=== PATIENT | male | born 1955 | race Caucasian/White ===

== ENCOUNTER 2020-03-02 10:16 | Observation (INO) ==
--- NOTE | 2020-01-09 14:25 | PAT Medication Instructions ---
Medication Instructions Date of Service January 09, 2020 Home Medications acetaminophen [Tylenol Arthritis Pain] 1,300 mg PO Q12H PRN diclofenac sodium [Voltaren] 2 g TOPICAL HS PRN multivitamin 1 tab PO QAM STOP taking 24 hours before surgery diclofenac sodium [Voltaren] 2 g TOPICAL HS PRN DO NOT take the morning of surgery multivitamin 1 tab PO QAM Take morning of surgery With a small sip of water, OTHERWISE NOTHING TO EAT OR DRINK AFTER MIDNIGHT: acetaminophen [Tylenol Arthritis Pain] 1,300 mg PO Q12H PRN (okay to take up to 4 hours prior to surgery if needed) Take evening before surgery acetaminophen [Tylenol Arthritis Pain] 1,300 mg PO Q12H PRN (if needed) Other Notes If you have any questions please call us at [phone] or [phone] or [phone] or [phone]
--- NOTE | 2020-01-12 11:59 | Anesthesiology Consultation ---
Date of Service January 12, 2020 Assessment & Plan (1) Encounter for pre-operative examination: - Inferior infarct on preop EKG: No comparison EKG's available in our system. Awaiting response from PCP regarding abnormal preop EKG (Dr. Adkins). Per PAT assessment on 01/11: Travel screen- Lives in [facility]. No known COVID-19 positive contacts (spouse had preop testing which was negative). Surgeon arranging preop COVID testing. Awaiting results. Chart Review Chart Review: Patient seen in Pre Admission Testing Teaching & Discussion Pre-Anesthesia Teaching/Discussion Notes: Instructed NPO after midnight before surgery,except medications with 15 cc of water. Medication instructions provided according to the PAT guidelines. History Surgery Operation Date: 03/02/20 10:55 Proposed Procedures p Left Total Knee Arthroplasty - Erick Abbott MD Surgery side changed to Right TKA (new booking sheet received)* Height/Weight Height: 5 ft 9 in Weight: 128.4 kg Allergies Allergy/AdvReac Type Severity Reaction Status Date / Time No Known Allergies Allergy Verified 01/08/20 13:53 Medications Home Medications Medication Instructions Recorded Confirmed Last Taken acetaminophen [Tylenol Arthritis 1,300 mg PO Q12H PRN 01/08/20 01/08/20 Unknown Pain] diclofenac sodium [Voltaren] 2 g TOPICAL HS PRN 01/08/20 01/08/20 Unknown multivitamin 1 tab PO QAM 01/08/20 01/08/20 Unknown Past Medical History Medical History Morbid obesity Osteoarthritis Exercise / Class Metabolic Activity II 4-5 Yardwork/Stairs/Walk up hill Past Surgical History Surgical History History of colonoscopy History of total shoulder replacement R/L x1, + right revision Past Anesthesia History No Hx of Anesthesia Complications and No Family Hx of Anesthesia Complications History of PONV No Hx of PONV and No Hx of Motion Sickness Social History Smoking Status: Never smoker Do You Dip or Chew Tobacco: No (QUIT MANY YRS) Hx Alcohol Use: No Hx Substance Use: No Review of Systems Patient denies chest pain, shortness of breath, dyspnea on exertion, fever, chills, cough, wheezing, palpitations. Physical Exam Vital Signs VITALS BP 155/77 P 80 TEMP 98.0 SP02 97%RA RESP 18 PHYSICAL Full neck and c-spine range of motion. Full TMJ range of motion. TMD 3.5 finger breaths Mallampati Score 2 Dentition: intact, several caps/implants including front teeth Lungs: clear throughout to auscultation Cardiac: regular rate and rhythm, no murmurs noted Spine: normal Carotid arteries: negative bruit Extremities: no edema + trimmed cristina + thick neck Testing Laboratory Results 01/12/20 12:50 01/12/20 12:50 PT 10.8 Seconds (9.0-12.0) 01/12/20 12:50 INR 1.0 (0.9-1.1) 01/12/20 12:50 APTT 26.7 Seconds (21.0-31.0) 01/12/20 12:50 Blood Type A Positive 01/12/20 12:50 Antibody Screen NEGATIVE 01/12/20 12:50 Electrocardiogram Date: 01/12/20 NSR at 63bpm. Inferior infarct, age undetermined. Chest X-Ray Date: 01/12/20 FINDINGS: The cardiac and mediastinal contours are normal. There is no evidence of focal pulmonary consolidation. There is no evidence of failure. No pleural effusions are visualized. There are bilateral total shoulder arthroplasties. IMPRESSION: No active disease in the chest.
[2020-01-12 13:30] LABS: Basophils # (auto) 0.03 K/uL (0-0.2); Basophils % (auto) 0.5 %; Eosinophils # (auto) 0.16 K/uL (0-0.5); Eosinophils % (auto) 2.6 %; Hematocrit (blood only) 47.4 % (42-52); Hemoglobin 15.6 g/dL (14.0-18.0); Immature Granulocytes # (auto) 0.04 K/uL (0.00-0.02); Immature Granulocytes % (auto) 0.7 %; Lymphocytes # (auto) 1.49 K/uL (1.2-3.4); Lymphocytes % (auto) 24.4 %; Mean Corpuscular Hemoglobin 29.3 pg (25-34); Mean Corpuscular Hgb Conc 32.9 g/dL (32-36); Mean Corpuscular Volume 89.1 fL (80-100); Mean Platelet Volume 9.3 fL (7.4-10.4); Monocytes # (auto) 0.49 K/uL (0.11-0.59); Neutrophils # (auto) 3.89 K/uL (1.4-6.5); Neutrophils % (auto) 63.8 %; Platelet Count 265 K/uL (130-400); RDW Standard Deviation 45.5 fL (36.4-46.3); Red Blood Count 5.32 M/uL (4.7-6.1)
--- NOTE | 2020-01-12 13:30 | XRay Report ---
XR chest Pre-admission PA/Lat CLINICAL HISTORY: Preoperative chest COMPARISON STUDY: No previous studies for comparison. FINDINGS: The cardiac and mediastinal contours are normal. There is no evidence of focal pulmonary co nsolidation. There is no evidence of failure. No pleural effusions are visualized.[There are bilatera l total shoulder arthroplasties. IMPRESSION: No active disease in the chest. ACT 112: Negative or not required by law. Electronically signed by: Junior Tierney M.D. 01/12/2020 1:29 PM
[2020-01-12 13:45] LABS: Partial Thromboplastin Time 26.7 Seconds (21.0-31.0); Prothrombin Time 10.8 Seconds (9.0-12.0)
[2020-01-12 13:52] LABS: BUN Creatinine Ratio 13.5 (10-20); Blood Urea Nitrogen 14 mg/dl (7-18); C Reactive Protein < 0.29 mg/dl (0-0.29); Calcium 9.3 mg/dl (8.5-10.1); Carbon Dioxide 29 mmol/L (21-32); Chloride 106 mmol/L (98-107); Creatinine Clr Calc Pharmacy 94.8 ml/min; Est GFR (African American) 87.9; Est GFR (Non-African American) 75.9; Glucose 99 mg/dl (70-99); Potassium 4.6 mmol/L (3.5-5.1); Sodium 140 mmol/L (136-145)
--- NOTE | 2020-01-12 17:56 | Electrocardiogram Report ---
Test Reason : Blood Pressure : / mmHG Vent. Rate : 063 BPM Atrial Rate : 063 BPM P-R Int : 166 ms QRS Dur : 094 ms QT Int : 404 ms P-R-T Axes : 031 -14 -08 degrees QTc Int : 413 ms Normal sinus rhythm Inferior infarct , age undetermined Abnormal ECG No previous ECGs available Confirmed by Ziyad Cameron ([id number]) on 01/12/2020 5:55:59 PM Referred By: Erick Abbott Confirmed By:William Cameron
--- NOTE | 2020-02-24 22:47 | History and Physical Report ---
DATE OF ADMISSION: 03/02/2020 CHIEF COMPLAINT: Bilateral knee pain and discomfort, right side greater than left. HISTORY OF PRESENT ILLNESS: The patient is a 64-year-old active gentleman who presents for surgical treatment of his knees. His has been a patient of mine. He has a 7-year history of bilateral pain and discomfort in his knee that has gradually gotten worse. It kind of vacillates back and forth which one bothers him more. Currently the right one is bothering more than the left. He has been through extensive conservative treatment in [place] with injections, which have become less successful over time. He had both shoulders replaced at [facility]. He would now like to have his right knee replaced. He has got chronic pain. The more he is on it, the more it hurts. He limps more as the day goes on. He has difficulty going up and down steps. PAST MEDICAL HISTORY: 1. Bilateral shoulder surgery. 2. Obesity with BMI of 42. PAST SURGICAL HISTORY: Include, 1. Left shoulder replacement done in [address] Hernandez at [facility]. 2. Right shoulder replacement done in [address] Hernandez at [facility]. 3. Right shoulder revision done in June 2019. 4. Elbow surgery in 1981. 5. Carpal tunnel release in 2000. ALLERGIES: None. CURRENT MEDICATIONS: Multivitamin. SOCIAL HISTORY: A 64-year-old male. He is very active. He does not smoke. FAMILY HISTORY: Noncontributory. REVIEW OF SYSTEMS: Negative for diabetes, neurologic problems, vascular problems, or bleeding disorders. No chest pain or shortness of breath. No history of DVT or PE. PHYSICAL EXAMINATION: GENERAL: Shows a healthy, pleasant, middle-aged male. He looks to be in pretty good health. HEENT: Benign. NECK: Supple with no lymphadenopathy. LUNGS: Clear to auscultation. HEART: Has a regular rate and rhythm. ABDOMEN: Soft, nontender, nondistended. EXTREMITIES: Grossly neurovascularly intact except as follows: Examination of both knees reveal the patient ambulates independently. He has got varus alignment to both knees. Examination of the right knee reveals varus alignment. He has got bony hypertrophy medially. Small knee effusion. He is tender over the medial joint line. Range of motion is 5-120. No instability. No pain with hip motion. Examination of the left knee reveals varus alignment. Small knee effusion. Range of motion is 5-120. No instability. X-RAYS: X-rays of both knees were reviewed. Shows advanced bilateral knee DJD with complete loss of his medial joint space. He has got osteophytes off the medial femoral condyle and medial tibial plateau. Some slight cystic changes as well. Left knee shows similar findings but just not quite as severe. ASSESSMENT: A 64-year-old male with history of several shoulder surgeries in the past with advanced bilateral knee degenerative joint disease, right side more symptomatic than the left. He has failed conservative treatment and would like to proceed with right knee replacement. PLAN: We will take him to the operating room and do right total knee replacement. The risks and benefits of this procedure were explained to the patient including but not limited to DVT, PE, , infection, neurological injury, vascular injury, bleeding problem, pain, limited range of motion, stiffness, failure to relieve symptoms, incomplete relief of symptoms, need for further surgery in future, fracture, leg length inequality, nerve palsy, need for revision surgery, etc. The patient understands and desires to proceed. Informed consent was obtained.
[~2020-03-02 10:16] MED LIST: ACETAMINOPHEN 500 MG TAB PO SCH; BUPIVACAINE 0.25% 30 ML VIAL ONE; BUPIVACAINE 0.5 % 5 MG/1 ML PF 10ML VIAL ONE; BUPIVACAINE LIPOSOME/PF 266 MG, BUPIVACAINE/EPINEPHRINE 50 ML, SODIUM CHLORIDE 0.9% 30 ... INFIL SCH; CEFAZOLIN 3000MG 72.5 ML IV SCH; FAMOTIDINE 20 MG TAB PO SCH; GABAPENTIN 300 MG CAP PO SCH; LR 500ML BOLUS, THEN 15ML/HR IV SCH; LR 60ML/HR IV SCH; METOCLOPRAMIDE HCL 10 MG TABLET PO SCH; TRANEXAMIC ACID 1,000 MG **IV Intra-op IV SCH
--- NOTE | 2020-03-02 11:14 | History & Physical Bridge Note ---
Date of Service March 02, 2020 History & Physical Bridge Note I have examined the patient, reviewed the History & Physical and in the interval since the performance of the History & Physical I have noted the following changes of clinical significance: no changes noted
[2020-03-02] MEDS ORDERED: ATROPINE SULFATE 0.1 MG/ML 10ML SYR IV PRN (11:43)
[2020-03-02] MEDS ORDERED: ONDANSETRON INJ 2 MG/ML 2 ML VIAL IV PRN ×2 (11:43→17:32)
[2020-03-02] MEDS ORDERED: fentaNYL citrate 100 MCG/2 ML VIAL IV PRN (11:43)
[2020-03-02] MEDS ORDERED: ePHEDrine sulfate 50 MG/ML AMP IV PRN (11:43)
[2020-03-02] MEDS ORDERED: MIDAZOLAM HCL 1 MG/ML 2ML VIAL ONE ×2 (11:46→14:01)
[2020-03-02] MEDS ORDERED: PROPOFOL IV EMULSION 10 MG/ML 20 ML VIAL IV ONE ×3 (11:46→15:15)
[2020-03-02] MEDS ORDERED: LIDOCAINE HCL 2% 2 ML VIAL/AMP(20MG/ML) INFIL ONE (11:46)
[2020-03-02] MEDS ORDERED: BACITRACIN INJ 50,000 UNIT VIAL ONE (13:27)
[2020-03-02] MEDS ORDERED: SODIUM CHLORIDE 0.9% PF 50 ML VIAL ONE (13:27)
[2020-03-02] MEDS ORDERED: BUPIVACAINE LIPOSOME 1.3% 266 MG/20 ML VIAL ONE (13:27)
[2020-03-02] MEDS ORDERED: BUPIVACAINE/EPINEPHRINE 0.25% 1:200,000 30 ML VIAL ONE (13:27)
[2020-03-02] MEDS ORDERED: PHENYLEPHRINE 100MCG/ML 5ML SYR ONE (13:56)
[2020-03-02] MEDS ORDERED: ePHEDrine sulfate 50 MG/ML AMP ONE (14:03)
--- NOTE | 2020-03-02 15:26 | Post Operative Brief Note ---
PG Immediate Post Op with CF Date of Surgery March 02, 2020 Pre & Post Diagnosis Operation Date: 03/02/20 12:45 Pre-Op Diagnosis: Right Knee Degenerative Joint Disease, Knee Pain Post-Op Diagnosis: Right Knee Degenerative Joint Disease, Knee Pain I identified the patient and participated in the time-out.: Yes Procedure Operation Date: 03/02/20 12:45 Actual Procedures p Right Total Knee Arthroplasty(Right) - Erick Abbott MD Surgeon Erick Abbott MD Construction Supervisor/Carpenter [place], PAC Estimated Blood Loss 50 Findings Consistent with Post-Op Diagnosis Fluids 1700 cc Specimens Specimen Description: a. right knee bone and tissue Drains Brown Catheter (16 Fr brown catheter inserted by FAITH Kearney without difficulty, draining clear yellow urine. Anesthesia to monitor urine output. ) Anesthesia Type Spinal MAC Complications none Disposition Accompanied Patient To Recovery: No Disposition: Recovery Room
--- NOTE | 2020-03-02 15:52 | XRay Report ---
TWO VIEWS RIGHT KNEE CLINICAL HISTORY: Postoperative examination. FINDINGS: AP and crosstable lateral portable views of the right knee are obtained. A right knee arthr oplasty is in near anatomic alignment. There has been undersurface remodeling of the patella. No acut e fracture is seen. There are expected postoperative changes around the knee including skin clips, a surgical drain, soft tissue edema, and subcutaneous gas. IMPRESSION: Expected postoperative changes status post right knee arthroplasty. No acute fracture is seen. ACT 112: Negative or not required by law. Electronically signed by: Willie Gracia M.D. 03/02/2020 3:51 PM
--- NOTE | 2020-03-02 16:25 | Anesthesiology Progress Note ---
Date of Service March 02, 2020 Anesthesia Post Procedure Vital Signs Vital Signs: Temp Pulse Pulse Resp BP BP Pulse Ox 03/02/20 16:15 78 18 123/73 95 03/02/20 16:05 74 14 121/81 95 03/02/20 15:55 78 17 134/80 95 03/02/20 15:45 82 20 120/74 97 03/02/20 15:35 97.7 F 85 18 130/72 99 03/02/20 11:41 96 H 20 170/102 H 96 03/02/20 11:10 98.2 F 91 H 20 149/90 H 98 Transfer of Care Handoff Completed per policy Notes Mental Status: alert / awake / arousable and participated in evaluation Patient Amnestic to Procedure: Yes Nausea / Vomiting: adequately controlled Pain: adequately controlled Airway Patency, RR, SpO2: stable & adequate BP & HR: stable & adequate Hydration State: stable & adequate Neuraxial Anesthesia: was administered and sensory block is resolving Anesthetic Complications: no major complications apparent and Pt Satisfied with anesthetic care
--- NOTE | 2020-03-02 17:25 | Operative Report ---
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 He had a fixed varus deformity to his knee with a large knee joint effusion. He had osteophytes in the medial compartment. Fluids 1700 cc. Specimens Right knee sent for pathology. Drains None. Anesthesia Type Spinal MAC Complications none Disposition Accompanied Patient To Recovery: No Disposition: Recovery Room Indications Patient is a 64-year-old gentleman is had about a 7-year history of gradually progressive increasing bilateral knee pain discomfort with right side being a little bit worse than the left. Is been through extensive conservative treatment which became less successful over time. X-rays showed bilateral knee DJD. He elected proceed with right total knee arthroplasty. Description of Procedure Operative implants consist of: 1. Biomet Vanguard size 75 right posterior stabilized femoral component. 2. Biomet size 75 tibial tray. 3. 10 mm posterior stabilized polyethylene insert. 4. 31 x 8 all poly-patella. The patient was taken to the operating identified placed on the operating table supine position protectors were properly padded. IV antibiotics arrived by anesthesia team. A spinal anesthetic and abductor canal block had provided in the holding area. Mohan catheter was placed in sterile fashion. Right thigh tip was then placed in the right lower extremities and prepped and draped in usual sterile fashion. The right leg was elevated exsanguinated with use of an Esmarch and turns placed at 300 mmHg. An anterior approach to the right knee was then performed to longitudinal incision centered over the patella. Sharp dissection was got thro ugh subcutaneous tissue down to the extensor mechanism. A medial parapatellar arthrotomy incision was made. Some subperiosteal dissection was carried out medially. The fat pad was dissected from each patella tendon. The lateral patellofemoral ligament was released. The patella was subluxated laterally and the knee was flexed. The osteophytes were taken off the distal femur. The ACL and PCL were then released from distal femur the tibia subluxated anteriorly. The external tibial alignment jig was then placed in the interface the tibia and adjusted 14 mm medially. Proximal tibial cut was made to remove about 2 mm of bone from most efficient aspect medial till plateau. The tibia was sized to a size 75. Some osteophytes were taken off medial and posterior medially. Attention drawn to the femur. The distal femur was then with a sharp drill. Intramedullary canal was suction. A right 6 degree valgus cutting guide was placed. This femoral cutting block was pinned in place but distal femoral cut was made to take an additional 3 mm of bone off the distal femur. The femur was then sized to a size 75. Of note, the AP dimensions were significant larger than the medial lateral dimensions by proportion. We did downsize a slightly. The AP cutting block was pinned parallel to the epicondylar axis which was 3 degrees of external rotation. The anterior cut, anterior chamfer, posterior cut, posterior chamfer cuts were made. Box cutting guide was placed in just slight lateral box cut was made. The knee was flexed. The remnants of the medial and lateral menisci were excised. The osteophytes were taken off the posterior aspect of the femur. A trial femoral component was placed for the tibial tray was pinned in maximum external rotation and the drill and stem punch were used to create defect in proximal tip for the tibial tray. The knee was then trialed the 10 mm insert fit most appropriately. Attention drawn the patella. The patella was cleaned of all soft tissues. Patella thickness measured 25 mm in thickness and was cut down to 15. Was sized to a size 31 patella. Locals were drilled for 31 patella. The lateral osteophyte is moved. Patella button was placed. Knee was taken through range of motion patella tracked nicely with no thumbs test. Attention turned to placing the permanent components. All trial components were removed. Bone plug was placed in the distal femur limit blood loss. A double batch Palacos G cement was mixed. A Biomet Vanguard size 75 right posterior stabilized femoral component, size 75 tibial tray, a 10 mm posterior box polyethylene insert, and a 31 x 8 all poly-patella were then cemented in place. Knee was brought in full extension total cement hardened. Final cement check was then performed. The pericapsular tissues were injected with total 100 cc of combination of 20 cc of Exparel, 30 cc normal saline, 50 cc of quarter percent Marcaine with epinephrine. Patient did receive 1 g tranexamic acid. The tourniquet was then let down for final tourniquet time 61 minutes. Hemostasis assured use electrocautery. The extensor neck was then closed with combination 1 PDS suture #1 Vicryl suture in [id number] fashion. Extensor mechanism was checked found to be intact with subcutaneous tissue then closed with 2 Dexon suture in a buried interrupted fashion. Skin was closed skin nik. Leg was then cleaned dried a sterile dressing composed Xeroform, 4 x 4's, sterile cast padding, Maycol bandage were applied. Patient then transferred to the recovery room in stable condition. The patient tolerated the procedure well and there were no complications. Dav Little, my physician casino assistant manager, was present for the entire procedure. His assistance was required and essential for proper patient positioning, prepping and draping, surgical exposure, performing the technical details of the operation, placing the implants, closure of the wound, and placement of the sterile bandage. I attest to the content of the Intraoperative Record and any orders documented therein. Any exceptions are noted below.
[2020-03-02] MEDS ORDERED: ALUMINUM/MAGNESIUM SUSP 30 ML UDC PO PRN (17:32)
[2020-03-02] MEDS ORDERED: NALOXONE HCL 0.4 MG/1 ML VIAL/CARP IV PRN (17:32)
[2020-03-02] MEDS ORDERED: MAGNESIUM HYDROXIDE SUSP 30 ML UDC PO PRN (17:32)
[2020-03-02] MEDS ORDERED: bisacodyL 10 MG SUPP PR PRN (17:32)
[2020-03-02] MEDS ORDERED: TAMSULOSIN HCL 0.4 MG CAP PO PRN (17:32)
[2020-03-02] MEDS ORDERED: METOCLOPRAMIDE HCL INJ 5 MG/ML 2 ML VIAL IV PRN (17:32)
[2020-03-02] MEDS: KETOROLAC 30 MG/ML VIAL IV SCH ×2 (18:46→23:35)
[2020-03-02] MEDS: ASCORBIC ACID 500 MG TAB PO SCH (18:46)
[2020-03-02] MEDS: FERROUS GLUCONATE 324 MG TAB PO SCH (18:46)
[2020-03-02] MEDS: OXYCODONE HCL IR 5 MG TAB (IMMEDIATE RELEASE) PO PRN (18:50)
[2020-03-02] MEDS: SODIUM CHLORIDE 0.9% 1000ML 1,000 ML IV SCH (18:50)
--- NOTE | 2020-03-02 19:43 | Progress Notes ---
DATE: 03/02/2020 SUBJECTIVE: A 64-year-old gentleman postop from right knee replacement. He is doing pretty well. His knee started to become painful. He describes an 8/10 pain right over the front of his knee. Denies any chest pain or shortness of breath. Not feeling dizzy or lightheaded. OBJECTIVE: VITAL SIGNS: Temperature 36.8. Vital signs are stable. Little hypertensive at 178/92. LUNGS: Examination reveals his lungs to be clear to auscultation. HEART: Has a regular rate and rhythm. ABDOMEN: Soft, nontender, nondistended. EXTREMITIES: Grossly neurovascularly intact except as follows: Examination of the right leg reveals the leg to be well aligned. He can dorsiflex and plantarflex his foot appropriately. He has got brisk refill. Good distal pulse. He is neurologically intact. X-RAYS: X-rays of the right knee from recovery room are reviewed. It shows a right cemented posterior stabilized total knee arthroplasty. Components looked to be in good position. No signs of problems. ASSESSMENT: A 64-year-old gentleman postoperative from right knee replacement, doing pretty well. He is a bit painful, which may account for some of his hypertension. No other complaints. He is neurologically intact. PLAN: 1. DVT prophylaxis including thigh-high TEDs, SCDs, and aspirin twice a day. 2. PT/OT. Weight bear as tolerated. Right total knee protocol. 3. Pain control, doing pretty well with current pain regimen. 4. Hypertension. We will try and get his pain under a little bit better control and see how his blood pressure responds. 5. Disposition: He is planning to be discharged home and do outpatient therapy.
[2020-03-02] MEDS: DOCUSATE SODIUM 100 MG CAP PO SCH (20:24)
[2020-03-02] MEDS: ASPIRIN 81 MG ECTAB PO SCH (20:24)
[2020-03-02] MEDS: SENNA 8.6 MG TAB PO SCH (20:24)
[2020-03-02] MEDS: TAPENTADOL HCL ER 50 MG TABCR PO SCH (20:24)
[2020-03-02] MEDS ORDERED: TRANEXAMIC ACID / 0.7% NACL 1,000 MG/100 ML BAG IV SCH (21:30)
[2020-03-02] MEDS: CEFAZOLIN 2000MG 2,000 MG/15 ML SYR IV SCH (22:15)
[2020-03-02] MEDS: HYDROmorphone INJ 0.5 MG/0.5 ML SYR IV PRN (22:15)
[2020-03-03] MEDS: SODIUM CHLORIDE 0.9% 1000ML 1,000 ML IV SCH (02:03)
[2020-03-03] MEDS ORDERED: CEFAZOLIN 2000MG 2,000 MG/15 ML SYR IV SCH (06:00)
[2020-03-03] MEDS ORDERED: LR 500ML BOLUS IV SCH (06:00)
[2020-03-03 06:04] LABS: Hematocrit (blood only) 42.4 % (42-52); Hemoglobin 13.8 g/dL (14.0-18.0); Mean Corpuscular Hemoglobin 29.1 pg (25-34); Mean Corpuscular Hgb Conc 32.5 g/dL (32-36); Mean Corpuscular Volume 89.3 fL (80-100); Mean Platelet Volume 9.5 fL (7.4-10.4); Platelet Count 262 K/uL (130-400); RDW Coefficient of Variation 14.1 % (11.5-14.5); RDW Standard Deviation 46.8 fL (36.4-46.3); Red Blood Count 4.75 M/uL (4.7-6.1)
[2020-03-03] MEDS: CEFAZOLIN 2000MG 2,000 MG/15 ML SYR IV SCH (06:23)
[2020-03-03] MEDS: KETOROLAC 30 MG/ML VIAL IV SCH ×4 (06:23→23:09)
[2020-03-03 06:44] LABS: BUN Creatinine Ratio 12.3 (10-20); Calcium 8.2 mg/dl (8.5-10.1); Creatinine Clr Calc Pharmacy 87.4 ml/min; Est GFR (African American) 80.3; Est GFR (Non-African American) 69.3
--- NOTE | 2020-03-03 07:56 | Progress Notes ---
DATE: 03/03/2020 SUBJECTIVE: A 64-year-old gentleman postop day 1 from right knee replacement. He is doing pretty well. Some pain, but seems to be improved from last evening. No chest pain or shortness of breath. Not feeling dizzy or lightheaded. OBJECTIVE: VITAL SIGNS: Temperature 36.3. Vital signs stable. Blood pressure improved at 146/80. GENERAL: Shows a pleasant, middle-aged male. He is lying in bed, looks pretty comfortable. EXTREMITIES: Examination of the right leg reveals the leg to be well aligned. Dressing is clean, dry and intact. No significant drainage. He can dorsiflex and plantarflex his foot appropriately. He can do a straight leg raise. LABORATORY DATA: Hemoglobin 13.8. Hematocrit 42.2. Electrolytes are stable. ASSESSMENT: A 64-year-old gentleman postop day 1 from right knee replacement, doing pretty well. His pain is improved. Blood pressure is improved. He is neurologically intact. PLAN: 1. DVT prophylaxis including thigh-high TEDs, SCDs, and aspirin twice a day. 2. PT/OT. Weight bear as tolerated. Right total knee protocol. 3. Pain control, doing well with current pain regimen. 4. Disposition: Plan to discharge to home with some home health once adequately recovered and medically stable and pain adequately controlled.
[2020-03-03] MEDS: OXYCODONE HCL IR 5 MG TAB (IMMEDIATE RELEASE) PO PRN ×2 (07:59→22:26)
[2020-03-03] MEDS: MULTIVITAMIN TAB PO SCH (09:00)
[2020-03-03] MEDS ORDERED: MULTIVITAMIN TAB PO SCH (09:00)
[2020-03-03] MEDS: ASCORBIC ACID 500 MG TAB PO SCH ×2 (09:00→18:09)
[2020-03-03] MEDS: ASPIRIN 81 MG ECTAB PO SCH ×2 (09:01→21:11)
[2020-03-03] MEDS: DOCUSATE SODIUM 100 MG CAP PO SCH ×2 (09:01→21:12)
[2020-03-03] MEDS: FERROUS GLUCONATE 324 MG TAB PO SCH ×2 (09:01→18:09)
[2020-03-03] MEDS: TAPENTADOL HCL ER 50 MG TABCR PO SCH ×2 (09:03→21:11)
[2020-03-03] MEDS: HYDROmorphone INJ 0.5 MG/0.5 ML SYR IV PRN (12:27)
[2020-03-03] MEDS: SENNA 8.6 MG TAB PO SCH (21:11)
[2020-03-04] MEDS: HYDROmorphone INJ 0.5 MG/0.5 ML SYR IV PRN ×2 (00:19→09:54)
[2020-03-04] MEDS: KETOROLAC 30 MG/ML VIAL IV SCH (05:52)
[2020-03-04] MEDS: OXYCODONE HCL IR 5 MG TAB (IMMEDIATE RELEASE) PO PRN (07:24)
--- NOTE | 2020-03-04 07:50 | Progress Notes ---
DATE: 03/04/2020 SUBJECTIVE: A 64-year-old gentleman postop day 2 from a right knee replacement. He is doing okay. Pretty painful last night. Doing quite a bit better this morning. No chest pain or shortness of breath. Not feeling dizzy or lightheaded. OBJECTIVE: VITAL SIGNS: Temperature is 37.1. Vital signs stable. GENERAL: Shows a pleasant, middle-aged male. He is lying in bed, looks reasonably comfortable this morning. EXTREMITIES: Examination of the right leg reveals the leg to be well aligned. Dressing is clean, dry and intact. Calf is soft and supple. Some mild swelling. He is neurologically intact. ASSESSMENT: A 64-year-old gentleman postop day 2 from a right knee replacement, doing pretty well. He has had a moderate amount of pain, but not out of the ordinary. It seems to be doing well with the pain medicines. PLAN: 1. DVT prophylaxis including thigh-high TEDs, SCDs, and aspirin twice a day. 2. PT/OT. Weight bear as tolerated. Right total knee protocol. 3. Pain control, doing well with current pain regimen. 4. Disposition: Plan to discharge to home with some home health later today.
[2020-03-04] MEDS: ASCORBIC ACID 500 MG TAB PO SCH (08:15)
[2020-03-04] MEDS: DOCUSATE SODIUM 100 MG CAP PO SCH (08:15)
[2020-03-04] MEDS: MULTIVITAMIN TAB PO SCH (08:15)
[2020-03-04] MEDS: FERROUS GLUCONATE 324 MG TAB PO SCH (08:15)
[2020-03-04] MEDS: ASPIRIN 81 MG ECTAB PO SCH (08:15)
[2020-03-04] MEDS: TAPENTADOL HCL ER 50 MG TABCR PO SCH (08:19)
--- NOTE | 2020-03-08 06:30 | Discharge Summary ---
Date of Service March 08, 2020 Admission HPI Per Admitting Provider Documented in the H & P Admission Exam (Per Admitting) Constitutional Documented in the H & P Discharge Data Consultations 03/02/20 17:32 Consult Case Management - Discharge Planning Routine Procedures Performed Operation Date: 03/02/20 12:45 Actual Procedures p Right Total Knee Arthroplasty(Right) - Erick Abbott MD Hospital Course (1) Status post total right knee replacement: This patient is a 64 year old male admitted on 03/02/20 and underwent total knee arthroplasty. He tolerated the procedure well and there were no complications. Transferred to the PACU post op and later to the orthopedic floor for further care. He was given ancef for antibiotic prophylaxis. He was also given GLADIS stockings, SCDs, and aspirin for DVT prophylaxis. Hemoglobin, hematocrit, and vital signs were monitored during his hospital stay and remained stable. Did not require any blood transfusions. There were no complications during his hospital stay. By post op day #2 the patient was tolerating a regular diet, pain was reasonably controlled with oral pain medicine, and he was participating in physical therapy. On post op day #2 the patient was discharged home. He was given printed discharge instructions including prescriptions for extra strength tylenol, aspirin, and oxycodone. Continue physical therapy, weight bearing as tolerated. Continue GLADIS stockings. Follow up approximately 2 weeks post op or sooner if there are problems or concerns. Coding Level of Care Code None Diagnoses Status post total right knee replacement Z96.651
== END 2020-03-04 10:17 | disposition home or self-care (01) ==
LOC: 3E 10:16 → ASU 10:16

== ENCOUNTER 2021-06-28 06:48 | Observation (INO) ==
--- NOTE | 2021-06-24 13:39 | Anesthesiology Consultation ---
Date of Service June 24, 2021 Assessment & Plan (1) Encounter for pre-operative examination: Chart Review Chart Review: Acceptable Risk for Surgery (pending preop Covid testing results ) and Patient NOT seen in Pre Admission Testing Per addendum 03/03/21 to 01/31/21 Anesthesia Consultation= Dr. Sheth reviewed chart- patient is an acceptable candidate for [facility] from anesthesia perspective. Pending patient is motivated, has good support and surgeon's office completes [facility] preop requirements- patient may proceed with outpatient TKA. Per nursing assessment 06/23/2021, patient denies any recent travel. No known COVID infection in the past 90 days. Patient is not vaccinated for COVID. No known Covid positive exposures or Covid related symptoms. Preop Covid testing 06/24/21= results pending -S/P Right TKA (03/02/20): SAB at L3-L4 (x1 attempt) + PNB at [facility] History Surgery Operation Date: 06/28/21 07:00 Proposed Procedures p Left Total Knee Arthroplasty - Erick Abbott MD Height/Weight Height: 5 ft 10 in Weight: 125.5 kg Allergies Allergy/AdvReac Type Severity Reaction Status Date / Time No Known Allergies Allergy Verified 06/23/21 12:57 Medications Home Medications Medication Instructions Recorded Confirmed Last Taken multivitamin 1 tab PO QAM 01/08/20 06/23/21 2 Weeks Ago ~02/17/20 acetaminophen 500 mg tablet 1,000 mg PO TID PRN 01/26/21 06/23/21 Unknown (Tylenol Extra Strength) ascorbic acid (vitamin C) 1,000 mg 2,000 mg PO QAM 01/26/21 06/23/21 Unknown tablet,extended release (Vitamin C ER) azelastine 137 mcg (0.1 %) nasal 1 spray INTRANASAL QAM PRN 01/26/21 06/23/21 Unknown spray aerosol fluticasone propionate 50 1 - 2 spray INTRANASAL QAM PRN 01/26/21 06/23/21 Unknown mcg/actuation nasal spray,suspension ipratropium bromide 42 mcg (0.06 1 - 2 spray INTRANASAL QAM 01/26/21 06/23/21 Unknown %) nasal spray omega 8-qtj-cke-fish oil 1,000 mg 2 cap PO QAM 01/26/21 06/23/21 Unknown (120 mg-180 mg) capsule (Fish Oil) diclofenac sodium 75 mg 75 mg PO BID PRN #60 tab 05/30/21 06/23/21 Unknown tablet,delayed release Past Medical History Medical History Cardiac murmur As child, no murmur noted at PAT visit 01/31/21 Left knee DJD Obesity Osteoarthritis Tinnitus Past Family History Family History Other No known health problems Past Surgical History Surgical History History of colonoscopy History of total knee replacement Right TKA (03/02/20): SAB at L3-L4 (x1 attempt) + PNB at [facility] History of total shoulder replacement R/L x1, + right revision Social History Smoking Status: Former smoker Do You Dip or Chew Tobacco: No Smoking End Date: quit 30yrs ago Hx Alcohol Use: No Hx Substance Use: No substance use type: does not use Lab Results Anesthesia Preop Results Results Anesthesia Widget: WBC 6.66 K/uL (4.8-10.8) 06/24/21 Hgb 16.5 g/dL (14.0-18.0) 06/24/21 Hct 48.4 % (42-52) 06/24/21 Plt 270 K/uL (130-400) 06/24/21 Na 137 mmol/L (136-145) 06/24/21 K 4.0 mmol/L (3.5-5.1) 06/24/21 Cl 103 mmol/L (98-107) 06/24/21 CO2 28 mmol/L (21-32) 06/24/21 BUN 18 mg/dl (6-23) 06/24/21 Creat 0.85 mg/dl (0.6-1.4) 06/24/21 Glucose Level 101 mg/dl (70-99) H 06/24/21 PT 10.2 Seconds (9.0-12.0) 06/24/21 PTT 26.4 Seconds (21.0-31.0) 06/24/21 INR 1.0 (0.9-1.1) 06/24/21 Blood Type A Positive 06/24/21 Antibody Screen NEGATIVE 06/24/21 Testing Electrocardiogram Date: 01/31/21 NSR at 69bpm. LAD. Inferior infarct (cited on or before 01/12/2020 per debate director review). Inferior infarct noted on 01/12/20 preop EKG done prior to patient's Right TKA (done at [facility] 03/02/20). Per PCP at that time, "I have reviewed patients EKG from 01/12/2020 and ECHO from 05/27/2019, patient is cleared for his surgery that is scheduled." Chest X-Ray Date: 01/31/21 Findings: + NAD FINDINGS: PA and lateral chest radiographs are compared to study dated 01/12/2020. The heart is top normal for projection noting atherosclerotic calcification of the thoracic aorta. The pulmonary vasculature is noncongested. There are tiny calcified granulomas. The lungs and pleural spaces are otherwise clear. There is no pneumothorax. Echocardiogram Date: 05/27/19 EF 55%. No regional wall motion abnormality. No significant valvular disease.
--- NOTE | 2021-06-24 14:28 | History and Physical Report ---
DATE OF ADMISSION: 06/28/2021 CHIEF COMPLAINT: Left knee pain and discomfort. HISTORY OF PRESENT ILLNESS: The patient is a 66-year-old gentleman who is about a year and a half ou t from a right knee replacement. He has had a long history of bilateral knee pain and discomfort nelson t has gradually gotten worse over time. He struggled a little bit with recovery from his right knee replacement, but is doing much better. He continues to be limited by left knee pain and discomfort. He has good and bad days, but having more bad days than good days. It is global pain. The more he is up and on it, the more it hurts. Limps more as the day goes on. He would like to have his left k nee replaced. PAST MEDICAL HISTORY: Significant for, 1. Bilateral shoulder surgery. 2. Obesity. PAST SURGICAL HISTORY: Includes, 1. Left shoulder surgery done by Dr. Hernandez in 2008. 2. Right shoulder replacement in 2009. 3. Right shoulder revision in 2019. 4. Elbow surgery in 1981. 5. Carpal tunnel release in 2000. 6. Right total knee replacement done on 03/02/2020. ALLERGIES: None. CURRENT MEDICATIONS: Multivitamin. SOCIAL HISTORY: A 66-year-old male. He is . Does not smoke. Rare alcohol intake. FAMILY HISTORY: Noncontributory. REVIEW OF SYSTEMS: Negative for diabetes, neurologic problem, vascular problem, or bleeding disorder s. No chest pain or shortness of breath. No history of DVT or PE. PHYSICAL EXAMINATION: GENERAL: Shows a pleasant middle-aged male. Looks to be in pretty good health. HEENT: Benign. NECK: Supple. No lymphadenopathy. LUNGS: Clear to auscultation. HEART: Regular rate and rhythm. ABDOMEN: Soft, nontender, nondistended. EXTREMITIES: Grossly neurovascularly intact except as follows: Examination of the left knee reveals the patient ambulates independently. He does limp on this left side. He has got a slight varus ali gnment with a bit of a varus thrust with weightbearing. Small knee effusion. Range of motion 5-120. No pain with hip motion. Examination of the right knee reveals well-healed incision. He has got a natomic alignment. Minimal swelling. Range of motion is 0 to 120. X-RAYS: X-rays of the left knee were reviewed. It shows advanced left knee DJD. He has got tricomp artment disease. He has got complete loss of his medial joint space. He has got a little bit of tib ial femoral subluxation. He has subchondral sclerosis. The right knee replacement looks to be in go od position without signs of problems. ASSESSMENT: A 66-year-old gentleman, almost a year and a half out from right knee replacement with a dvanced left knee degenerative joint disease. He has failed conservative treatment and would like to have his left knee fixed. He has been scheduled and canceled on several occasions due to the COVID epidemic and looking forward to get his knee replaced. PLAN: We will take him to the operating room and do a left total knee replacement. The risks and be nefits of this procedure were explained to the patient that include but not limited to DVT, PE, , infection, neurological injury, vascular injury, bleeding problem, pain, limited range of motion, s tiffness, failure to relieve his symptoms, incomplete relief of symptoms, need for further surgery in the future, fracture, leg length inequality, nerve palsy, etc. The patient understands and desires to proceed. Informed consent was obtained. He is hoping to be discharged to home and do some home health with [facility]. He is hoping to do this as an outpatient at this point. He will follow up in clinic 2 weeks postop. Job ID: [id number]
[~2021-06-28 06:48] MED LIST changes: -BUPIVACAINE 0.25% 30 ML VIAL ONE; -BUPIVACAINE 0.5 % 5 MG/1 ML PF 10ML VIAL ONE; -CEFAZOLIN 3000MG 72.5 ML IV SCH; +MEPIVACAINE HCL 1.5% 30 ML VIAL ONE; +ROPIVACAINE 0.5% 5 MG/ML 30 ML VIAL ONE
--- NOTE | 2021-06-28 06:55 | History & Physical Bridge Note ---
Date of Service June 28, 2021 History & Physical Bridge Note I have examined the patient, reviewed the History & Physical and in the interval since the performance of the History & Physical I have noted the following changes of clinical significance: no changes noted
[2021-06-28] MEDS ORDERED: ORTHO JOINT ANESTHETIC ONE (07:32)
[2021-06-28] MEDS ORDERED: BUPIVACAINE/EPINEPHRINE 0.25% 1:200,000 30 ML VIAL ONE ×2 (07:40→07:52)
[2021-06-28] MEDS ORDERED: BUPIVACAINE LIPOSOME 1.3% 266 MG/20 ML VIAL ONE (07:42)
[2021-06-28] MEDS ORDERED: SODIUM CHLORIDE 0.9% PF 50 ML VIAL ONE (07:42)
[2021-06-28] MEDS ORDERED: BUPIVACAINE 0.25% 30 ML VIAL ONE (08:23)
[2021-06-28] MEDS ORDERED: LIDOCAINE 2%/EPINEPHRINE 1:200,000 20 ML SDV ONE (08:30)
[2021-06-28] MEDS ORDERED: PROPOFOL IV EMULSION 10 MG/ML 20 ML VIAL IV ONE (09:01)
[2021-06-28] MEDS ORDERED: MIDAZOLAM HCL 1 MG/ML 2ML VIAL ONE ×2 (09:01→09:52)
[2021-06-28] MEDS ORDERED: fentaNYL citrate 100 MCG/2 ML VIAL ONE ×3 (09:01→10:23)
[2021-06-28] MEDS ORDERED: ONDANSETRON INJ 2 MG/ML 2 ML VIAL ONE (09:01)
[2021-06-28] MEDS ORDERED: ePHEDrine sulfate 50 MG/ML SYR ONE (09:13)
[2021-06-28] MEDS ORDERED: PHENYLEPHRINE 100MCG/ML 5ML SYR ONE (09:13)
[2021-06-28] MEDS ORDERED: ePHEDrine sulfate 50 MG/ML AMP IV PRN (09:58)
[2021-06-28] MEDS ORDERED: ONDANSETRON INJ 2 MG/ML 2 ML VIAL IV PRN ×2 (09:58→18:22)
[2021-06-28] MEDS ORDERED: ATROPINE SULFATE 0.1 MG/ML 10ML SYR IV PRN (09:58)
[2021-06-28] MEDS ORDERED: KETOROLAC 30 MG/ML VIAL ONE (10:16)
[2021-06-28] MEDS ORDERED: ceFAZolin 2000MG 2,000 MG/15 ML SYR IV ONE (10:37)
--- NOTE | 2021-06-28 10:47 | Operative Report ---
Post Operative Report Pre & Post Diagnosis Operation Date: 06/28/21 08:50 Pre-Op Diagnosis: Left Knee Degenerative Joint Disease Post-Op Diagnosis: Left Knee Degenerative Joint Disease I identified the patient and participated in the time-out.: Yes Procedure Operation Date: 06/28/21 08:50 Actual Procedures p Left Total Knee Arthroplasty(Left) - Erick Abbott MD Surgeon Erick Abbott MD Foreign Policy Officer Dav Little PA-C Estimated Blood Loss 50 Findings Consistent with Post-Op Diagnosis Operative findings were advanced left knee DJD. He had grade 4 [id number] disease in all 3 compartments. Varus deformity to his knee. Moderate-sized knee effusion. Fluids 1400 cc Specimens Left knee sent for pathology. Anesthesia Type Spinal MAC Complications none Disposition Accompanied Patient To Recovery: No Indications Patient is a 66-year-old gentleman said a long history of knee pain and discomfort. Is been through extensive conservative treatment which became less successful over time. He had his right lower knee replaced in the past and is done relatively well from that. He continues to be limited by left knee pain discomfort. He elected proceed with left total knee arthroplasty. Description of Procedure Operative implants consist of: 1. Biomet Vanguard size 75 left posterior stabilized femoral component. 2. Biomet size 79 tibial tray. 3. 10 mm posterior stabilized polyethylene insert. 4. 31 x 8 all polypatella. The patient was taken the operating, identified, and placed on the operating table supine position protectors were properly padded. IV antibiotics tried by anesthesia team. A spinal anesthetic and been implemented holding area. A left thigh tourniquet was then placed. The left lower extremity was then prepped and draped in usual sterile fashion. The left leg was elevated exsanguinated with use of an Esmarch and tourniquet placed at 300 mmHg. An anterior posterior left knee was then performed to longitudinal incision centered over the patella. Sharp dissection was carried through subcutaneous is down the extensor mechanism. A medial parapatellar arthrotomy incision was made. Some subperiosteal dissection was carried out medially to the fat pad was dissected from each patella tendon. Lateral patellofemoral ligament was released. Patella subluxated laterally knee was flexed. The osteophyte taken off distal femur. ACL PCL were then released from the distal femur the tibia subluxated anteriorly. External tibial alignment jig was then placed in the interface of the tibia and adjusted 14 mm medially. Proximal tibial cut was made remove about a millimeter or 2 of bone from the most deficient aspect medial tibial plateau. Some osteophytes taken off medial and posterior medially. Tibia sized to a size 79. Attention drawn the femur. The distal femur stem with a sharp drop with intramedullary canal was suction. A left 6 degree valgus cutting guide was then placed. The distal femoral cutting block was pinned in place and the distal femoral cut was then made to a take an additional 3 mm of bone off distal femur. The femur was then sized to a size 75. We did downsize this slightly. The AP cutting block was pinned parallel to the epicondylar axis which was 4 degrees of external rotation. The anterior cut, anterior chamfer, posterior cut, posterior chamfer cuts were made. The box cutting guide was placed in the just slightly lateral and the box cut was made. The knee was flexed. The remnants of the medial and lateral menisci were excised. The osteophyte taken off the posterior aspect of the femur. A trial femoral component was placed. The tibial tray was pinned in maximum external rotation and the drill and stem punch were used to create defect in proximal tibia for the tibial tray. Knee was then trialed and 10 mm insert fit most appropriately. Attention drawn the patella. The patella was cleaned of all soft tissues. Patella thickness measured 23 mm in thickness cut down to 13. Was sized to a size 31 patella. The lug holes were drilled for the 31 patella. The lateral osteophyte was removed. Patella button was placed. Knee was taken through range of motion and the patella tracked nicely with no thumbs test. Attention drawn to placing permanent components. All trial components were removed. Bone plug was placed in the distal femur limit blood loss put a double batch Palacos G cement was mixed. Biomet Vanguard size 75 left posterior stabilized femoral component, size 79 tibial tray, 10 mm posterior stabilized polyethylene insert, and a 31 x 8 all polypatella then cemented in place. Knee was brought out into full extension total cement hardened. Final cement check was then performed. Pericapsular tissues were injected with total of 100 cc of combination of 20 cc of Exparel, 30 cc normal saline, 50 cc of quarter percent Marcaine with epinephrine. Patient did receive 1 g tranexamic acid. The tourniquet was let down for final tourniquet time of 61 minutes. Hemostasis assured use electrocautery. Extensor neck was then closed with combination 1 PDS suture #1 Vicryl suture in a [id number] fashion. Extensor mechanism checked found to be intact and subcutaneous tissue then closed with 2 Dexon suture in a buried interrupted fashion skin was closed skin nik. Legs then cleaned dried a sterile dressing with Xeroform, 4 fours, sterile cast padding, Maycol bandage were applied. Patient then transferred to the recovery room in stable condition. Patient tolerated procedure well and there were no complications. Dav Little, my physician assistant child care teacher, was present for the entire procedure. His assistance was essential and required for appropriate patient positioning, prepping and draping, surgical exposure, performing the technical details of the operation, placement the implants, closure of the wound, and placement of the sterile bandage. I attest to the content of the Intraoperative Record and any orders documented therein. Any exceptions are noted below.
[2021-06-28] MEDS: fentaNYL citrate 100 MCG/2 ML VIAL IV PRN ×2 (10:58→11:03)
--- NOTE | 2021-06-28 11:09 | XRay Report ---
XR knee LT 1 or 2V routine CLINICAL HISTORY: Surgical Post Op. Status post knee replacement COMPARISON STUDY: No previous studies for comparison. TECHNIQUE: 2 left knee views FINDINGS: The patient is status post total knee replacement. The prosthetic components are in anatomi c alignment with no acute abnormality seen. Air is present within the soft tissues from the procedure . Skin nik are seen anteriorly. IMPRESSION: Status post total knee replacement ACT 112: Negative or not required by law. Electronically signed by: Maurizio Guadalupe M.D. 06/28/2021 11:08 AM
--- NOTE | 2021-06-28 11:28 | Anesthesiology Progress Note ---
Date of Service June 28, 2021 Anesthesia Post Procedure Vital Signs Vital Signs: Temp Pulse Pulse Resp BP BP Pulse Ox 06/28/21 11:10 36.6 C 100 H 16 152/81 H 93 06/28/21 11:00 100 H 16 160/90 H 94 06/28/21 10:50 102 H 17 146/85 H 96 06/28/21 10:44 36.8 C 102 H 17 138/93 96 06/28/21 07:12 37.2 C 109 H 20 188/96 H 95 Pain Intensity Left Knee: Pain Intensity: 7 Transfer of Care Handoff Completed per policy Notes Mental Status: alert / awake / arousable and participated in evaluation Nausea / Vomiting: adequately controlled Pain: adequately controlled Airway Patency, RR, SpO2: stable & adequate BP & HR: stable & adequate Hydration State: stable & adequate Neuraxial Anesthesia: was administered and sensory block is resolving Anesthetic Complications: no major complications apparent and Pt Satisfied with anesthetic care
[2021-06-28] MEDS: oxyCODONE/ACETAMINOPHEN 5mg/325mg TAB PO PRN ×2 (11:47→15:42)
[2021-06-28] MEDS ORDERED: LABETALOL HCL IV 5 MG/ML 20ML IV STA ×2 (12:25→14:31)
[2021-06-28] MEDS ORDERED: LABETALOL HCL IV 5 MG/ML 20ML IV ONE ×2 (12:31→14:34)
[2021-06-28] MEDS ORDERED: ceFAZolin 2,000 MG/15 ML IV PUSH IV ONE (14:05)
--- NOTE | 2021-06-28 15:05 | Communication Note ---
Date of Service: June 28, 2021 Patient was up and ambulating and BP noted to be 200's/140's. Patient asymptomatic. Lives an hour away. [place] it was best to have patient admitted with medicine following for BP control. Attending surgeon agrees as does the patient and his . Patient treated with IV labetalol twice with better BP control. All questions answered.
[2021-06-28] MEDS ORDERED: HYDROmorphone HCL 2 MG TAB PO PRN (18:22)
[2021-06-28] MEDS ORDERED: FLUTICASONE PROPIONATE NA SPR 16 GM BTL NAE PRN (18:22)
[2021-06-28] MEDS ORDERED: bisacodyL 10 MG SUPP PR PRN (18:22)
[2021-06-28] MEDS ORDERED: AZELASTINE HCL 0.1% NASAL 200 SPRAYS/27,400 MCG BTL PRN (18:22)
[2021-06-28] MEDS ORDERED: MAGNESIUM HYDROXIDE SUSP 30 ML UDC PO PRN (18:22)
[2021-06-28] MEDS ORDERED: ALUMINUM/MAGNESIUM SUSP 30 ML UDC PO PRN (18:22)
[2021-06-28] MEDS ORDERED: ASCORBIC ACID 500 MG TAB PO SCH (18:22)
[2021-06-28] MEDS ORDERED: NALOXONE HCL 0.4 MG/1 ML VIAL/CARP IV PRN (18:22)
[2021-06-28] MEDS ORDERED: METOCLOPRAMIDE HCL INJ 5 MG/ML 2 ML VIAL IV PRN (18:22)
[2021-06-28] MEDS ORDERED: ONDANSETRON 4 MG OD TAB PO PRN (18:40)
[2021-06-28] MEDS: SODIUM CHLORIDE 0.9% 1000ML 1,000 ML IV SCH (19:38)
[2021-06-28] MEDS: KETOROLAC TROMETHAMINE 15 MG/ML VIAL IV SCH (19:38)
--- NOTE | 2021-06-28 19:42 | Progress Notes ---
DATE OF SERVICE: 06/28/2021 SUBJECTIVE: A 66-year-old gentleman postop from a left knee replacement. He is doing well. Pain is controlled, but present. No chest pain or shortness of breath. Not feeling dizzy or lightheaded. OBJECTIVE: VITAL SIGNS: Temperature is 36.8. Vital signs are stable. He has been hypertensive with systolic b lood pressure above 200, currently 162/70. PHYSICAL EXAMINATION: GENERAL: Shows a pleasant middle-aged male. He is sitting up in bed and cracking jokes and looks co mfortable. LUNGS: Clear to auscultation. HEART: Regular rate and rhythm. ABDOMEN: Soft, nontender, nondistended. EXTREMITIES: Grossly neurovascularly intact except as follows: Examination of the left leg reveals the dressing to be clean, dry and intact. He can dorsiflex and plantarflex his foot appropriately. He has got good distal pulse. His sensory exam is intact to light touch. X-RAYS: X-rays of the left knee from recovery room are reviewed. It shows a left cemented posterior stabilized total knee arthroplasty. Components looked to be in good position. It is a slightly rot ated film. ASSESSMENT: A 66-year-old gentleman postoperative from a left knee replacement, doing well. Pain is pretty well controlled. He has been hypertensive and the anesthesia does not feel comfortable sendi ng him home. No real underlying medical issues otherwise. PLAN: We are going to observe him overnight in the hospital. We will get a medicine consult. Moriah nue DVT prophylaxis including thigh-high TEDs, SCDs, and aspirin. We will do PT and OT in the [facility]. He is weightbearing as tolerated. We will give him 24 hours of IV antibiotics and hopeful discha rge tomorrow and he is going to do outpatient therapy. Job ID: [id number]
[2021-06-28] MEDS ORDERED: METOPROLOL TARTRATE 1 MG/ML VIAL IV PRN (19:50)
[2021-06-28] MEDS: ACETAMINOPHEN 500 MG TAB PO SCH (20:23)
[2021-06-28] MEDS: TAPENTADOL HCL ER 50 MG TABCR PO SCH (20:24)
[2021-06-28] MEDS: DOCUSATE SODIUM 100 MG CAP PO SCH (20:24)
[2021-06-28] MEDS: ASPIRIN 81 MG ECTAB PO SCH (20:25)
[2021-06-28] MEDS ORDERED: SENNA 8.6 MG TAB PO SCH (21:00)
[2021-06-28] MEDS ORDERED: hydrALAZINE HCL 20 MG/ML VIAL IV PRN (21:12)
--- NOTE | 2021-06-28 21:16 | Hospitalist Consultation ---
Date of Consultation June 28, 2021 Assessment & Plan (1) Perioperative hypertension: Healthy appearing 66 yo M with HTN after L total knee replacement. HTN - asymptomatic - highest noted to be 221/123 - decreased considerably with 2 doses of labetalol given in PACU - PRN metoprolol and hydralazine orders placed for BP >200/120 and hold parameters for heart rate - noted to be somewhat tachycardic perioperatively as well but now resolved - will follow DVT ppx: SCDs FEN/GI: regular diet Bowel regimen: docusate, senna Code Status: Full Code Dispo: med/Tele History of Present Illness Attending Physician: Erick Abbott MD History of Present Illness 66 yo M with hx arthritis found to have elevated blood pressures after elective knee replacement surgery. Consultation requested by Dr. Abbott. No significant PMH. hx BL shoulder replacements, now POD0 after L total knee arthroplasty. State that he doesn't take any medications at home. No allergies to medications. No hx HTN, DM2, CAD. Denies any dizziness/headache/chest pain/numbness/tingling that occurred with the hypertensive episode. Allergies Allergy/AdvReac Type Severity Reaction Status Date / Time No Known Allergies Allergy Verified 06/28/21 07:39 Home Medications Medication Instructions Recorded Confirmed Type multivitamin 1 tab PO QAM 01/08/20 06/28/21 History ascorbic acid (vitamin C) 1,000 mg 2,000 mg PO QAM 01/26/21 06/28/21 History tablet,extended release (Vitamin C ER) azelastine 137 mcg (0.1 %) nasal 1 spray INTRANASAL QAM PRN 01/26/21 06/28/21 History spray aerosol fluticasone propionate 50 1 - 2 spray INTRANASAL QAM PRN 01/26/21 06/28/21 History mcg/actuation nasal spray,suspension ipratropium bromide 42 mcg (0.06 1 - 2 spray INTRANASAL QAM 01/26/21 06/28/21 History %) nasal spray omega 0-kqx-btj-fish oil 1,000 mg 2 cap PO QAM 01/26/21 06/28/21 History (120 mg-180 mg) capsule (Fish Oil) acetaminophen 500 mg tablet 1,000 mg PO TID 06/25/21 06/28/21 History (Tylenol Extra Strength) aspirin 81 mg tablet,delayed 81 mg PO BID 45 Days #90 tab 06/25/21 06/28/21 Rx release (Adult Aspirin Regimen) hydromorphone 2 mg tablet 2 - 4 mg PO Q8H PRN #40 tab 06/25/21 06/28/21 Rx ketorolac 10 mg tablet 10 mg PO Q6 #20 tab 06/25/21 06/28/21 Rx ondansetron HCl 4 mg tablet 4 mg PO Q8H PRN #30 tab 06/25/21 06/28/21 Rx sennosides 8.6 mg-docusate sodium 1 tab-cap PO DAILY #14 tab 06/25/21 06/28/21 Rx 50 mg tablet (Senokot-S) tamsulosin 0.4 mg capsule (Flomax) 0.4 mg PO DAILY #10 cap 06/25/21 06/28/21 Rx Patient History Medical History Cardiac murmur As child, no murmur noted at PAT visit 01/31/21 Left knee DJD Obesity Osteoarthritis Tinnitus Surgical History History of colonoscopy History of total knee replacement Right TKA (03/02/20): SAB at L3-L4 (x1 attempt) + PNB at [facility] History of total shoulder replacement R/L x1, + right revision Family History Other No known health problems Social History Smoking Status: Former smoker Smoking End Date: quit 30yrs ago; Second Hand Exposure: No; Do You Dip or Chew Tobacco: No; Tobacco Cessation Education Requested by Patient: No Hx Alcohol Use: No Hx Substance Use: No Preferred Language: Yemeni Communication Ability: Effective Senior Ui Software Engineer Required: No Beliefs That Will Affect Care: None marital status: Current Living Situation: Spouse current occupational status: retired Other Information That Helps Us Care for You: No Feels Safe at Home: Yes Safety Concerns: Feels Safe At This Time Assistive Devices: Glasses Review of Systems Constitutional: no fever, no chills, no body aches and no fatigue Respiratory: no cough and no dyspnea Cardiovascular: no chest pain, no dyspnea and no edema Gastrointestinal: no abdominal pain, no nausea, no vomiting, no constipation and no diarrhea/loose stools Neurologic: no tingling, no numbness, no dizziness and no confusion Physical Exam Physical Exam: Constitutional: obese, in no apparent distress, sitting comfortably in bed. Eyes: EOMI, pupils equal and reactive bilaterally, no scleral icterus Cardiac: RRR, no murmurs, gallops or rubs. Normal S1, S2 Pulm: CTA BL, no wheezes, rhonchi, crackles or rubs, moving air well throughout both lungs Abd: soft, nontender, distended, normal bowel sounds, no rebound or guarding Extremities: BL lower extremities in thigh high SCDs, able to wiggle toes Neuro: A&Ox3 Results & Data Results & Data ([facility]) Vital Signs (Past 12 Hours) Vital Signs Temp Pulse Pulse Resp BP BP Pulse Ox 06/28/21 19:48 178/84 H 06/28/21 18:22 36.7 C 93 H 18 151/77 H 91 06/28/21 17:42 96 H 20 162/70 H 96 06/28/21 17:05 36.8 C 84 20 143/91 H 96 06/28/21 16:27 86 20 151/87 H 95 06/28/21 15:58 89 20 147/90 H 92 06/28/21 15:30 88 20 158/92 H 93 06/28/21 15:00 36.8 C 89 166/97 H 94 06/28/21 14:40 96 H 157/97 H 06/28/21 14:25 111 H 221/123 H 06/28/21 14:20 100 H 185/110 H 06/28/21 14:18 97 H 171/87 H 06/28/21 13:30 36.5 C 91 H 20 156/98 H 06/28/21 13:00 112 H 20 163/95 H 06/28/21 12:48 97 H 156/95 H 06/28/21 12:40 114 H 174/94 H 06/28/21 12:20 36.5 C 112 H 201/98 H 06/28/21 11:50 36.3 C L 109 H 20 198/107 H 96 06/28/21 11:20 36.6 C 105 H 18 189/92 H 98 06/28/21 11:10 36.6 C 100 H 16 152/81 H 93 06/28/21 11:00 100 H 16 160/90 H 94 06/28/21 10:50 102 H 17 146/85 H 96 06/28/21 10:44 36.8 C 102 H 17 138/93 96 Resident Activity Tracking Resident Involvement: Resident Care Provided Care Provided: Adult Hospital Medicine
[2021-06-28] MEDS ORDERED: oxyCODONE HCL IR 5 MG TAB (IMMEDIATE RELEASE) PO PRN (21:20)
[2021-06-28] MEDS ORDERED: TRANEXAMIC ACID / 0.7% NACL 1,000 MG/100 ML BAG IV SCH (22:15)
[2021-06-28] MEDS: ceFAZolin 2000MG 2,000 MG/15 ML SYR IV SCH (22:17)
[2021-06-29] MEDS: KETOROLAC TROMETHAMINE 15 MG/ML VIAL IV SCH ×2 (00:46→06:17)
[2021-06-29] MEDS: oxyCODONE HCL IR 5 MG TAB (IMMEDIATE RELEASE) PO PRN ×3 (04:57→13:59)
[2021-06-29] MEDS: SODIUM CHLORIDE 0.9% 1000ML 1,000 ML IV SCH (05:39)
[2021-06-29 05:53] LABS: Hematocrit (blood only) 40.3 % (42-52); Hemoglobin 13.1 g/dL (14.0-18.0); Mean Corpuscular Hemoglobin 28.9 pg (25-34); Mean Corpuscular Hgb Conc 32.5 g/dL (32-36); Mean Platelet Volume 9.4 fL (7.4-10.4); Platelet Count 210 K/uL (130-400); RDW Coefficient of Variation 13.9 % (11.5-14.5); RDW Standard Deviation 45.4 fL (36.4-46.3); Red Blood Count 4.53 M/uL (4.7-6.1); White Blood Count 8.63 K/uL (4.8-10.8)
[2021-06-29 06:10] LABS: BUN Creatinine Ratio 12.9 (10-20); Calcium 8.1 mg/dl (8.5-10.1); Creatinine Clr Calc Pharmacy 102.5 ml/min; Est GFR (African American) 98.1 ml/min; Est GFR (Non-African American) 84.6 ml/min
[2021-06-29] MEDS: ceFAZolin 2000MG 2,000 MG/15 ML SYR IV SCH (06:16)
[2021-06-29] MEDS ORDERED: dexAMETHasone 4 MG TAB PO SCH (08:00)
[2021-06-29] MEDS: ACETAMINOPHEN 500 MG TAB PO SCH (08:03)
[2021-06-29] MEDS: DOCUSATE SODIUM 100 MG CAP PO SCH (08:04)
[2021-06-29] MEDS: TAPENTADOL HCL ER 50 MG TABCR PO SCH (08:18)
[2021-06-29] MEDS: ASPIRIN 81 MG ECTAB PO SCH (08:52)
[2021-06-29] MEDS ORDERED: OMEGA-3 (PURIFIED FISH OIL) 1 GM CAP PO SCH (09:00)
[2021-06-29] MEDS ORDERED: ASCORBIC ACID 500 MG TAB PO SCH (09:00)
[2021-06-29] MEDS ORDERED: TAMSULOSIN HCL 0.4 MG CAP PO SCH (09:00)
[2021-06-29] MEDS ORDERED: IPRATROPIUM BROMIDE NASAL SPRAY 0.06% 15ML SCH (09:00)
[2021-06-29] MEDS ORDERED: MULTIVITAMIN TAB PO SCH ×2 (09:00)
[2021-06-29] MEDS ORDERED: DOCUSATE SODIUM/SENNA 50/8.6MG TAB PO SCH (09:00)
--- NOTE | 2021-06-29 11:04 | Hospitalist Progress Note ---
Date of Service June 29, 2021 Assessment & Plan (1) Perioperative hypertension: Plan: Hypertensive in the setting of pain, surgery, etc. No symptoms, despite high BP. - BP now down to 145/80. - No acute hospital needs. Patient will have BP checked at home by his si ster-in-law who is an RN. He will f/u with his PCP. Admission and Anticipated Discharge Date Admission Date: June 28, 2021 Subjective Left knee pain today. Reports no fevers/chills, chest pain, shortness of breath, abdominal pain, nausea, or vomiting. Physical Exam Constitutional: WD/WN, vitals as above Eyes: EOM intact bilaterally; no conjunctival abnormality ENMT: external ear and nose normal, oropharynx normal Neck: trachea midline, no thyromegaly normal visual inspection Respiratory: normal respiratory effort, lungs clear to auscultation no respiratory distress Cardiovascular: RRR, no murmur, no edema Gastrointestinal (Abdomen): Inspection/Auscultation: abdomen normal to inspection; abdomen not distended Musculoskeletal: no cyanosis or clubbing, extremities motor strength 5/5 Knee: + knee abnormal to inspection (Left knee bandaged) Skin: no rashes, warm and dry Neurologic: moves all extremities and awake Psychiatric: Orientation: alert, oriented to person and cooperative Results & Data Results & Data ([facility]) Vital Signs (Past 12 Hours) Vital Signs Temp Pulse Pulse Resp BP BP Pulse Ox 06/29/21 10:16 93 06/29/21 07:28 37.7 C H 97 H 20 146/78 H 90 06/29/21 07:09 99 H 06/29/21 03:10 37.2 C 106 H 20 167/85 H 91 PG Care Time/CCT Total # of Minutes Spent Total Time Spent with Patient: Total time spent is greater than 50% in coordination of care (as documented) at patient's floor/unit and/or counseling patient: Coding Level of Care Code 51679 Subseq Hosp Care Lvl 2 Diagnoses Perioperative hypertension I97.88; I10
[2021-06-29 11:54] VITALS: TEMP 98.1; O2SAT 92
[2021-06-29 13:42] VITALS: BP 167/85; PULSE 96
--- NOTE | 2021-06-29 14:11 | Progress Notes ---
DATE OF SERVICE: 06/29/2021. SUBJECTIVE: A 66-year-old gentleman postoperative day 1 from a left knee replacement. He was admitt ed overnight to the hospital for hypertension. His blood pressure has been up and down from time to time. Seems to respond to some of the pain medicine. He was also given some other medicines by the hospitalist. He has no symptoms. Denies any chest pain or shortness of breath. He really wants to get home. OBJECTIVE: VITAL SIGNS: Temperature is 36.7, pulse is 100, and blood pressure 190/85. GENERAL: Shows a pleasant middle-aged male. He is sitting up in bed and looks comfortable. EXTREMITIES: Examination of the left leg reveals the leg to be well aligned. Dressing is clean, dry and intact. He can do a good straight leg raise. He can dorsiflex and plantarflex his foot appropr iately. He is neurologically intact. LABORATORY DATA: Hemoglobin 13.1. Hematocrit 40.5. Electrolytes are stable. ASSESSMENT: A 66-year-old gentleman postoperative day 1 from left knee replacement, doing pretty wel l. Clinically, he is doing fine. He does have pain, which seems to drive his blood pressure up some . He has been a little bit tachycardic as well, but asymptomatic. PLAN: 1. DVT prophylaxis includes thigh-high TEDs, SCDs, and aspirin twice a day. 2. PT, OT, weightbear as tolerated. Left total knee protocol. 3. Pain control, doing okay with current pain regimen. 4. Hypertension. Medicine is managing this. He assures me that he is going to follow up with his [facility] doctor in the next couple of days and follow this along. A lot of his hypertension could be r elated to just postoperative pain as it seems to be going up and down significantly. He has been int ermittently slightly tachycardic, but asymptomatic. He is very anxious to get out of here and we tanya l likely discharge him with the understanding that he is going to follow up with his medical doctor a t home. We will let the final decision up to the medicine service. Job ID: [id number]
== END 2021-06-29 14:03 | disposition home or self-care (01) ==
LOC: ASU 06:48 → 2N 06:48